=== PATIENT | female | born 1985 | race African-American/Black ===

== ENCOUNTER 2021-02-03 12:05 | Inpatient (IN) | payer OTHER ==
[2021-02-03] MEDS ORDERED: PROMETHAZINE HCL 25 MG/1 ML VIAL IVPUSH ONE (15:05)
[2021-02-03] MEDS ORDERED: BUTORPHANOL TARTRATE 1 MG/ML VIAL IVPUSH ONE (15:05)
[2021-02-03] MEDS ORDERED: AMPICILLIN - 2 GM in SODIUM CHLORIDE 100 ML IVPB ONE (15:13)
[2021-02-03] MEDS ORDERED: OXYTOCIN 30 UNITS in 0.9% NS 30 UNIT/500 ML INFUS.BAG IVPB SCH (15:15)
[2021-02-03] MEDS ORDERED: DEXTROSE 5%-LACTATED RINGERS 1,000 ML IV SCH ×2 (15:15→17:45)
[2021-02-03] MEDS ORDERED: CITRIC ACID/SODIUM CITRATE 30 ML UNIT-DOSE CUP PO ONE (15:36)
[2021-02-03 16:09] LABS: BASO % 0.3 % (0-2.0); EOS % 0.3 % (0-4.5); HEMATOCRIT 37.1 % (32.4-45.2); HEMOGLOBIN 12.5 GM/dL (10.7-15.3); LYMPH % 14.4 % (8-40); MCHC 33.6 g/dl (32.0-36.0); MEAN PLT VOLUME 9.2 fl (7.5-11.1); MONO % 6.2 % (3.8-10.2); NEUT % 78.8 % (42.8-82.8); PLATELET COUNT 229 10^3/uL (134-434); RDW 13.5 % (11.6-15.6); WHITE BLOOD COUNT 8.7 K/mm3 (4.0-10.0)
[2021-02-03] MEDS ORDERED: OXYTOCIN 20 UNITS in 0.9% NS 20 UNIT/1,000 ML INFUS.BAG IV ONE ×2 (16:14→19:02)
[2021-02-03] MEDS ORDERED: morphine SULFATE (PF) 1 MG/2 ML SYRINGE ONE (16:15)
[2021-02-03] MEDS ORDERED: ONDANSETRON 4 MG/2 ML VIAL IVPUSH PRN (16:28)
[2021-02-03] MEDS ORDERED: ACETAMINOPHEN 325 MG TABLET (FP) PO PRN ×2 (16:28→17:37)
[2021-02-03 16:34] LABS: CALCIUM 9.1 mg/dL (8.5-10.1)
[2021-02-03 16:35] LABS: BLOOD UREA NITROGEN 5.7 mg/dL (7-18)
[2021-02-03 16:38] LABS: CREATININE 0.6 mg/dL (0.55-1.3)
[2021-02-03] MEDS ORDERED: ONDANSETRON 4 MG/2 ML VIAL ONE (16:44)
[2021-02-03] MEDS ORDERED: ceFAZolin SODIUM 1 GM VIAL ONE (16:44)
[2021-02-03] MEDS ORDERED: KETOROLAC TROMETHAMINE 30 MG/1 ML VIAL ONE (16:44)
[2021-02-03 17:26] LABS: INR 0.9 (0.83-1.09)
[2021-02-03 17:29] LABS: ACTIVATED PTT 25.9 SECONDS (25.2-36.5)
[2021-02-03] MEDS ORDERED: diphenhydrAMINE HCL 25 MG CAPSULE (FP) PO PRN (17:36)
[2021-02-03] MEDS ORDERED: oxyCODONE HCL 5 MG TABLET PO PRN (17:36)
[2021-02-03] MEDS ORDERED: METHYLERGONOVINE MALEATE 0.2 MG/1 ML AMP IM PRN (17:36)
[2021-02-03] MEDS ORDERED: BENZOCAINE 20% 57 GM BOTTLE TP PRN (17:36)
[2021-02-03] MEDS ORDERED: WITCH HAZEL 50% (TUCKS) 40 PAD/JAR PAD TP PRN (17:36)
[2021-02-03] MEDS ORDERED: BENZOCAINE 28 GM HEMORRHOIDAL OINTMENT PR PRN (17:36)
[2021-02-03] MEDS ORDERED: IBUPROFEN 600 MG TABLET (FP) PO PRN (17:36)
[2021-02-03] MEDS ORDERED: IBUPROFEN 800 MG/8 ML IJ IVPB PRN (17:36)
[2021-02-03] MEDS ORDERED: OXYTOCIN 20 UNITS in 0.9% NS 20 UNIT/1,000 ML INFUS.BAG IV SCH (17:45)
[2021-02-03 18:07] VITALS: BMI 29.0
[2021-02-03 18:34] LABS: CORD BASE EXCESS -4.1 mmol/L (0-2); CORD HCO3 22.6 mmHg (20-29); CORD PCO2 47.4 mmHg (30-78); CORD pH 7.296 (7.14-7.44)
[2021-02-03 18:35] LABS: CORD BASE EXCESS -3.6 mmol/L (0-2); CORD HCO3 25.3 mmHg (20-29); CORD PCO2 63.8 mmHg (30-78); CORD pH 7.216 (7.14-7.44)
[2021-02-03] MEDS ORDERED: AMPICILLIN - 1 GM in SODIUM CHLORIDE 100 ML IVPB SCH (19:15)
[2021-02-03] MEDS: CEFAZOLIN 1 GM in DEXTROSE 5%-WATER - 50 ML IVPB SCH (21:44)
[2021-02-04] MEDS ORDERED: DEXTROSE 5%-WATER - 50 ML IVPB ONE ×2 (01:35→09:25)
[2021-02-04] MEDS ORDERED: ceFAZolin SODIUM 1 GM VIAL ONE ×2 (01:35→09:25)
[2021-02-04] MEDS: CEFAZOLIN 1 GM in DEXTROSE 5%-WATER - 50 ML IVPB SCH (01:38)
[2021-02-04 06:16] LABS: BASO % 0.4 % (0-2.0); EOS % 0.3 % (0-4.5); HEMATOCRIT 30.6 % (32.4-45.2); HEMOGLOBIN 10.6 GM/dL (10.7-15.3); LYMPH % 15.4 % (8-40); MCH 32.8 pg (25.7-33.7); MCHC 34.7 g/dl (32.0-36.0); MEAN CELL VOLUME 94.6 fl (80-96); MEAN PLT VOLUME 9.1 fl (7.5-11.1); MONO % 7.4 % (3.8-10.2); NEUT % 76.5 % (42.8-82.8); PLATELET COUNT 197 10^3/uL (134-434); RBC 3.24 M/mm3 (3.60-5.2); RDW 13.7 % (11.6-15.6); WHITE BLOOD COUNT 10.5 K/mm3 (4.0-10.0)
[2021-02-04] MEDS: ENOXAPARIN NA (PORCINE) 40 MG/0.4 ML DISP.SYRIN SQ SCH (09:39)
[2021-02-04] MEDS ORDERED: CEFAZOLIN 1 GM in DEXTROSE 5%-WATER - 50 ML IVPB ONE (10:00)
[2021-02-04] MEDS ORDERED: BISACODYL 10 MG SUPP.RECT PR PRN (17:36)
[2021-02-04] MEDS: SIMETHICONE 80 MG TAB.CHEW (FP) PO PRN (17:57)
[2021-02-04] MEDS: IBUPROFEN 600 MG TABLET (FP) PO PRN (17:57)
[2021-02-05] MEDS: SIMETHICONE 80 MG TAB.CHEW (FP) PO PRN ×3 (00:37→19:42)
[2021-02-05] MEDS: IBUPROFEN 600 MG TABLET (FP) PO PRN ×2 (00:37→13:24)
[2021-02-05] MEDS: oxyCODONE HCL 5 MG TABLET PO PRN ×2 (08:11→18:03)
[2021-02-05] MEDS: ENOXAPARIN NA (PORCINE) 40 MG/0.4 ML DISP.SYRIN SQ SCH (13:25)
[2021-02-05] MEDS ORDERED: SENNOSIDES/DOCUSATE COMBO (SENNA PLUS) TABLET (UD) PO PRN (22:00)
[2021-02-06] MEDS: oxyCODONE HCL 5 MG TABLET PO PRN ×2 (05:00→15:18)
[2021-02-06 08:06] LABS: BASO % 0.4 % (0-2.0); EOS % 0.8 % (0-4.5); HEMATOCRIT 28.3 % (32.4-45.2); HEMOGLOBIN 9.7 GM/dL (10.7-15.3); LYMPH % 10.4 % (8-40); MCH 32.3 pg (25.7-33.7); MCHC 34.2 g/dl (32.0-36.0); MEAN CELL VOLUME 94.5 fl (80-96); MONO % 5.1 % (3.8-10.2); NEUT % 83.3 % (42.8-82.8); PLATELET COUNT 234 10^3/uL (134-434); RDW 13.4 % (11.6-15.6); WHITE BLOOD COUNT 12.8 K/mm3 (4.0-10.0)
[2021-02-06 09:01] VITALS: BP 120/79; PULSE 86; TEMP 98.5
[2021-02-06] MEDS: ENOXAPARIN NA (PORCINE) 40 MG/0.4 ML DISP.SYRIN SQ SCH (09:19)
[2021-02-06] MEDS: SIMETHICONE 80 MG TAB.CHEW (FP) PO PRN ×3 (09:19→18:40)
[2021-02-06] MEDS: IBUPROFEN 600 MG TABLET (FP) PO PRN ×2 (09:19→18:40)
== END 2021-02-06 19:28 | disposition home or self-care (01) | DRG 540 ==
LOC: JDEL 12:05 → JLDR 14:50 → J3W 21:38
PROVIDERS: ADMIT Obstetrics & Gynecology; ATTEND Obstetrics & Gynecology
PROC: 10D00Z1 Extraction of Products of Conception, Low, Open Approach (ICD-10-PCS; principal; 2021-02-03)
DX: O48.0 Post-term pregnancy (principal); O76 Abnormality in fetal heart rate and rhythm complicating labor and delivery; O41.03X0 Oligohydramnios, third trimester, not applicable or unspecified; Z3A.40 40 weeks gestation of pregnancy; Z37.0 Single live birth; O99.824 Streptococcus B carrier state complicating childbirth; O69.81X0 Labor and delivery complicated by cord around neck, without compression, not applicable or unspecified; O69.89X0 Labor and delivery complicated by other cord complications, not applicable or unspecified; O34.13 Maternal care for benign tumor of corpus uteri, third trimester; D25.9 Leiomyoma of uterus, unspecified
CPT/HCPCS: 36415; 36600; 59025; 80048; 82803; 85025; 85610; 85730; 86780; 86850; 86900; 86901; 88307-TC; C9803; U0003; U0005

== ENCOUNTER 2024-10-08 13:19 | Emergency (ER) | payer OTHER ==
[2024-10-08 13:26] VITALS: BMI 29.8
[2024-10-08] MEDS ORDERED: MORPHINE SULFATE 2 MG/ML SYRINGE ONE (14:43)
[2024-10-08 14:47] LABS: ABSOLUTE IMMATURE GRANULOCYTES 0.05 x10^3/uL (0.0-0.031); BASOPHILS # 0.03 x10^3/uL (0.01-0.08); EOSINOPHILS # 0.11 x10^3/uL (0.04-0.36); HEMATOCRIT 33.3 % (34.1-44.9); HEMOGLOBIN 10.5 g/dL (11.2-15.7); MCHC 31.5 g/dl (32.2-35.5); MEAN CELL VOLUME 99.1 fl (79.4-94.8); MEAN PLT VOLUME 9.9 fl (9.4-12.3); MONOCYTE # 0.63 x10^3/uL (0.24-0.86); PLATELET COUNT 368 x10^3/uL (182-369); RDW 13.8 % (12.1-16.8)
[2024-10-08] MEDS: morphine CARPU-JECT 2 MG/1 ML DISP.SYRIN IVPUSH ONE (14:49)
[2024-10-08] MEDS: SODIUM CHLORIDE 1,000 ML IV ONE (14:50)
[2024-10-08 15:07] LABS: POTASSIUM 4.1 mmol/L (3.5-5.1)
[2024-10-08 15:09] LABS: BLOOD UREA NITROGEN 18.2 mg/dL (7-18); CALCIUM 9.9 mg/dL (8.5-10.1)
[2024-10-08 15:12] LABS: CREATININE 0.5 mg/dL (0.55-1.3)
[2024-10-08 15:14] LABS: BILIRUBIN,TOTAL 0.3 mg/dL (0.2-1); TOT PROT 6.6 g/dl (6.4-8.2)
[2024-10-08] MEDS ORDERED: morphine SULFATE 4 MG/ML VIAL ONE ×4 (15:47→16:17)
[2024-10-08] MEDS: morphine CARPU-JECT 4 MG/1 ML DISP.SYRIN IVPUSH ONE (16:28)
[2024-10-08 16:46] LABS: EPI CELLS 7 /uL (0-25.1); HYALINE CASTS 0 /uL (0-3.1); PH,URINE 6.5 (5.0-8.0); URINE APPEARANCE CLEAR; URINE BACTERIA 61 /uL (0-1359); URINE BILIRUBIN NEGATIVE (NEGATIVE); URINE COLOR YELLOW; URINE GLUCOSE (UA) NEGATIVE (NEGATIVE); URINE KETONE NEGATIVE (NEGATIVE); URINE LEUK ESTERASE 1+ (NEGATIVE); URINE NITRITE NEGATIVE (NEGATIVE); URINE PROTEIN NEGATIVE (NEGATIVE); URINE RBC 85 /uL (0-23.9); URINE UROBILINOGEN 0.2 mg/dL (0.2-1.0); URINE WBC 31 /uL (0-25.8)
[2024-10-08] MEDS: ACETAMINOPHEN 1000 MG/100 ML BAG IVPB ONE (19:55)
[2024-10-08] MEDS ORDERED: ACETAMINOPHEN INJECTION 100 ML ONE (19:58)
[2024-10-08 23:02] VITALS: BP 123/71; PULSE 72; RESP 18; TEMP 98.6
== END 2024-10-08 23:03 | disposition home or self-care (01) ==
LOC: JER 13:19
PROC: 3E033NZ Introduction of Analgesics, Hypnotics, Sedatives into Peripheral Vein, Percutaneous Approach (ICD-10-PCS; principal; 2024-10-08)
PROC: 3E033NZ Introduction of Analgesics, Hypnotics, Sedatives into Peripheral Vein, Percutaneous Approach (ICD-10-PCS; 2024-10-08)
PROC: 3E033NZ Introduction of Analgesics, Hypnotics, Sedatives into Peripheral Vein, Percutaneous Approach (ICD-10-PCS; 2024-10-08)
PROC: 3E0337Z Introduction of Electrolytic and Water Balance Substance into Peripheral Vein, Percutaneous Approach (ICD-10-PCS; 2024-10-08)
DX: O90.89 Other complications of the puerperium, not elsewhere classified (principal); G89.18 Other acute postprocedural pain; R10.13 Epigastric pain
CPT/HCPCS: 36415; 74177-TC; 76856-TC; 80053; 81003; 83690; 85025; 99285-25; J0131; Q9967